=== PATIENT | female | born 1955 | race Caucasian/White ===

== ENCOUNTER → 2017-06-10 16:48 | Outpatient (CLI) | payer OTHER, SELFPAY ==
[2017-06-18 11:41] LABS: HPV APTIMA, High Risk Negative (Negative)
[2017-06-18 12:25] LABS: HPV Reflexed? NOT INDICATED
== END ==
PROVIDERS: Visit Provider Obstetrics & Gynecology
DX: R87.810 Cervical high risk human papillomavirus (HPV) DNA test positive (principal)
CPT/HCPCS: 88175; G0145

== ENCOUNTER → 2017-12-22 07:13 | Outpatient (CLI) | payer OTHER, SELFPAY ==
[2017-12-22 08:16] LABS: ALB/GLOB Ratio 1.3 RATIO (0.9-2.4); AST(SGOT) 12 U/L (15-37); Alanine Aminotransfer ALT/SGPT 27 U/L (13-56); Albumin, Serum 4.2 g/dL (3.2-5.0); Alkaline Phosphatase 107 U/L (45-117); Anion Gap 6 (5-15); BUN 13 mg/dL (7-18); BUN/Creat Ratio 13.5 RATIO (10-20); Calcium,Total 9.1 mg/dL (8.5-10.1); Chloride 109 mmol/L (98-107); Cholesterol 209 mg/dL (200); Creatinine, Serum 0.96 mg/dL (0.55-1.02); EST Glomerular Filtration Rate 62 mL/min (>60); Est Glom Filt Rate - Afr Amer 75 mL/min (>60); Globulin 3.2 g/dL (2.2-4.2); Glucose 99 mg/dL (74-106); High Density Lipoprotein 68 mg/dL; Potassium 4.3 mmol/L (3.5-5.1); Protein, Total 7.4 g/dL (6.4-8.2); Sodium Level 143 mmol/L (136-145); Triglycerides 85 mg/dL; Very Low Density Lipoprotein 17 mg/dL (5-40)
== END ==
PROVIDERS: Family Provider Family Medicine; PCP Family Medicine; Referring Provider Family Medicine; Visit Provider Family Medicine
DX: I10 Essential (primary) hypertension (principal); Z13.220 Encounter for screening for lipoid disorders
CPT/HCPCS: 36415; 80053; 80061

== ENCOUNTER → 2018-09-08 15:30 | Outpatient (CLI) | payer OTHER, SELFPAY ==
--- NOTE | 2018-09-08 15:34 | BI_ITS ---
MAMMOGRAPHY - BILATERAL SCREENING REASON FOR EXAM: Female, 63 years old. Routine annual screening examination. PERTINENT HISTORY: Non-contributory. TECHNIQUE: Digital bilateral breast milton (3D mammographic acquisition) in the CC and MLO projections. 2-D mediolateral oblique (MLO) and craniocaudad (CC) views of both breasts were obtained. CAD: Full Field Digital Mammography with Computer Added Detection was performed. COMPARISON: Comparison is made with prior outside examination dated May 21, 2016. FINDINGS: Breast Composition: There are scattered areas of fibroglandular density. There are no dominant masses or suspicious calcifications. No other significant abnormalities are identified. There has been no significant change since the prior study. BI/SCREEN MAMM (CAD) W/MILTON BILAT IMPRESSION: Stable bilateral screening mammogram. Yearly follow-up mammogram recommended. (A) ASSESSMENT CATEGORY: BIRADS Category 1: Negative. A letter regarding these results will be sent to the patient by the facility within 30 days. Approximately 10% of breast cancers are not detected by mammography. A normal mammogram should not delay biopsy of a clinically suspicious abnormality. [id number] Electronically Signed: Garo Mendes, at 15:51 EDT , Service support ,
[2018-09-15 15:19] LABS: HPV APTIMA, High Risk Positive (Negative)
== END ==
LOC: OPBI 15:32 → LABSPEC 15:34
PROVIDERS: Family Provider Family Medicine; PCP Family Medicine; Referring Provider Obstetrics & Gynecology; Visit Provider Obstetrics & Gynecology
DX: Z12.4 Encounter for screening for malignant neoplasm of cervix (principal); Z12.31 Encounter for screening mammogram for malignant neoplasm of breast
CPT/HCPCS: 77063; 77067; 88175; G0145

== ENCOUNTER → 2018-10-07 15:55 | Outpatient (CLI) | payer OTHER, SELFPAY ==
--- NOTE | 2018-10-07 | IMM_PTH ---
PATIENT: ASCENCION VYAS LOC: [facility] U#:[id number] AGE/SX: 69/F ROOM: RE10/07/[address]: Dr. Mor Piedra MD : 1955 BED: DIS: SPEC #: [id number] RECD: 10/11/18 12:18 STATUS: NEVAEH REGabrielle #: [id number] LAURA: 10/07/18 00:[address]: Mor Piedra DEPT: IMMUNOHISTOCHEMISTRY RECD BY: Ryne Bruno ENTERED: 10/11/18 12:20 SP TYPE: IMMUNO OTHR DR: Dr. Lino Kimble MD Tissues: A - Uterine cervix, NOS B - Endocervical Procedures: p16 (initial) KI-67 (add) PHYSICIAN & INSTITUTION [place] [id number] SPECIMEN INFORMATION: Tissue Source: A. Cervical biopsy, B. ECC Clinical Info: ASCUS, HPV positive Specimen Number: [id number] A and B CPT code: 82971 x2, 32369 x2 METHODOLOGY: Deparaffinized sections of prefer/formalin-fixed tissue or PAP/DQ stained slides are incubated with monoclonal/polyclonal antibodies/oligonucleotide probes. Localization is made via biotin free immunoperoxidase method. Appropriate controls are performed and reacted as expected. Results on target cell population are indicated in the following table: RESULTS: ANTIBODY / CLONE RESULT Block A P16 (E6H4) positive, focal, patchy Ki-67 (30-9) negative Block B P16 (E6H4) positive, focal, patchy Ki-67 (30-9) negative These tests were developed and their performance characteristics determined by [facility]. They may not have been cleared or approved by the U.S. Food and Drug Administration. The FDA has determined that such clearance or approval is not necessary. INTERPRETATION: A .Cervix, biopsy: Consistent with focal mild dysplasia/HPV change B. Endocervix, biopsy: Consistent with focal mild dysplasia/HPV change Case has been reviewed in consultation with Dr. Mendes who concurs with the above diagnosis. IDC:NESTOR AM:erasmo 10/12/18
--- NOTE | 2018-10-07 15:00 | CER_PTH ---
PATIENT: ASCENCION VYAS LOC: [facility] U#:[id number] AGE/SX: 69/F ROOM: RE10/07/[address]: Dr. Mor Piedra MD : 1955 BED: DIS: SPEC #: [id number] RECD: 10/07/18 15:43 STATUS: NEVAEH REGabrielle #: [id number] LAURA: 10/07/18 15:[address]: Mor Piedra DEPT: SURGICAL PATHOLOGY RECD BY: Yosef Beyer ENTERED: 10/10/18 13:32 SP TYPE: CERV OTHR DR: Dr. Lino Kimble MD Tissues: A - Uterine cervix, NOS B - Endocervical Procedures: Surgery Specimen Level IV HEADER OPERATION: Colposcopy PRE-OP DIAGNOSIS: ASCUS - HPV positive TISSUE SUBMITTED: A. Cervical biopsy, 4 quadrant, B. ECC MICROSCOPIC DIAGNOSIS A. Cervix, 4-quadrant biopsy: Mild squamous dysplasia, SERGEI 1 (LSIL). B. Endocervix, curettings: Strips of benign superficial endocervix. Strips of benign detached squamous mucosa with focal HPV change. HAN:angela 10/11/18 COMMENT Immunohistochemistry ([id number]) supports the above diagnosis. Case has been reviewed in consultation with Dr. Mendes who concurs with the above diagnosis. IDC:NESTOR MICROSCOPIC DESCRIPTION Slides are reviewed. GROSS DESCRIPTION A. Received is one container labeled with the patient name and designated cervix 4 quadrant. The specimen consists of multiple pieces of connell soft tissue that in aggregate measure 0.6 x 0.6 x 0.2 cm. The specimen is totally submitted in one cassette. B. Received is one container labeled with the patient name and designated ECC. The specimen consists of multiple fragments of hemorrhagic soft tissue that in aggregate measure 0.6 x 0.5 x 0.1 cm. The specimen is totally submitted in one cassette. /NESTOR:angela 10/10/18 TC: 5 CPT: 45899 x2
== END ==
PROVIDERS: Family Provider Family Medicine; PCP Family Medicine; Referring Provider Obstetrics & Gynecology; Visit Provider Obstetrics & Gynecology
DX: R87.810 Cervical high risk human papillomavirus (HPV) DNA test positive (principal)
CPT/HCPCS: 88305; 88341; 88342

== ENCOUNTER 2024-01-17 17:26 | Emergency (ER) | payer OTHER, MEDICARE, SELFPAY ==
[2024-01-17 17:27] VITALS: BP 162/88; PULSE 68; RESP 16; TEMP 37.1; O2SAT 99; BMI 24.9
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
--- NOTE | 2024-01-17 20:14 | ED.RN ---
Patient transported to CT
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
--- NOTE | 2024-01-17 20:20 | RAD_ITS ---
EXAM: XR CHEST, 2 VIEWS CLINICAL INDICATION: Pain TECHNIQUE: Frontal and lateral views of the chest. COMPARISON: No relevant prior studies available. FINDINGS: LUNGS AND PLEURAL SPACES: Hyperinflated lungs with mild interstitial prominence perhaps secondary to COPD. No focal pneumonia. No pneumothorax. No effusion. HEART: No significant abnormality. Cardiac silhouette not enlarged. MEDIASTINUM: Central airways and mediastinal contour are unremarkable. BONES/JOINTS: No significant abnormality. No acute fracture. SOFT TISSUES: No significant abnormality. RAD/Chest PA and Lateral IMPRESSION: Hyperinflated lungs with mild interstitial prominence perhaps secondary to COPD. No focal pneumonia. Electronically Signed: Zohaib Ellis DO at 21:13 EST ,
--- NOTE | 2024-01-17 20:27 | ED.RN ---
Patient returned to room from CT
--- NOTE | 2024-01-17 20:40 | ED.RN ---
Patient ambulated to bathroom
--- NOTE | 2024-01-17 21:10 | ED.RN ---
Patient given ice water and amparo doones per request
[2024-01-17 21:27] VITALS: RESP 16
[2024-01-17 21:58] VITALS: BP 162/88; PULSE 68; RESP 16; TEMP 37.1; O2SAT 99
== END 2024-01-17 21:58 | disposition home or self-care (01) ==
PROVIDERS: Emergency Provider Emergency Medicine; PCP Family Medicine; Visit Provider Emergency Medicine
DX: S16.1XXA Strain of muscle, fascia and tendon at neck level, initial encounter (principal); S20.20XA Contusion of thorax, unspecified, initial encounter; V49.40XA Driver injured in collision with unspecified motor vehicles in traffic accident, initial encounter
CPT/HCPCS: 71046; 72125; 99282

== ENCOUNTER → 2024-01-19 | Outpatient (CLI) | payer OTHER, MEDICARE, SELFPAY ==
[2024-01-19 12:39] LABS: Hematocrit 44.4 % (37-47); Hemoglobin 13.7 g/dL (12.0-15.0); Mean Corp Hgb Conc 30.9 g/dL (32-36); Mean Corpuscular Hgb 29.5 pg (27.0-32.0); Mean Corpuscular Volume 95.5 fL (81-99); Mean Platelet Vol. 12.5 fl (6.2-12.0); Platelet Count 205 K/mm3 (150-450); RBC Distribution Width CV 13.8 % (11.6-14.6); RBC Distribution Width SD 48.7 fl (35.1-43.9); Red Blood Count 4.65 M/mm3 (4.2-5.4); White Blood Count 7.8 K/mm3 (4.4-11.0)
[2024-01-19 12:46] LABS: Anion Gap 8 (5-15); BUN 16 mg/dL (7-18); BUN/Creat Ratio 15.8 RATIO (10-20); Calcium,Total 10.1 mg/dL (8.5-10.1); Chloride 106 mmol/L (98-107); Creatinine, Serum 1.01 mg/dL (0.55-1.02); EST Glomerular Filtration Rate 58 mL/min (>60); Est Glom Filt Rate - Afr Amer 70 mL/min (>60); Glucose 96 mg/dL (74-106); Potassium 4.3 mmol/L (3.5-5.1); Sodium Level 135 mmol/L (136-145)
== END | disposition home or self-care (01) ==
LOC: LAB.FUTURE 09:21 → MTLAB 09:35
PROVIDERS: PCP Family Medicine; Referring Provider Urology; Visit Provider Urology
DX: N39.3 Stress incontinence (female) (male) (principal); N39.42 Incontinence without sensory awareness
CPT/HCPCS: 36415; 80048; 85027

== ENCOUNTER 2024-01-27 06:51 | Day surgery (SDC) | payer MEDICARE, OTHER, SELFPAY ==
[2024-01-27] VITALS (7 sets, daily range): BP systolic 109–133; BP diastolic 56–76; PULSE 58–65; RESP 14–18; TEMP 36.6–36.7; O2SAT 98–100; BMI 23.4
--- NOTE | 2024-01-27 07:23 | PRE.ANES_ITS ---
ASA Classification* ASA Classification ASA Classification: 2 Assessment & Plan Anesthesia* Anesthesia Assessment Anesthesia Assessment: Discussed sedation and/or anesthesia options, risks, benefits, and alternatives with patient/parents/legal guardian/POA. Questions invited. The patient/parents/legal guardian/POA seems to understand and agrees to proceed with anesthesia plan. Reviewed the physical assessment, medical history, allergy history and patient home medications list prior to surgery/procedure/anesthetic and documented any changes. Performed airway and anesthesia risk assessments. Anesthesia Type Anesthesia Type: General Anesthesia Focused Assessment* Airway Assessment Mouth opens: >3 cm Mallampati Score: II Focused Labs Anesthesia Preop lab: CBC WBC 7.8 K/mm3 (4.4-11.0) 01/19/24 09:39 RBC 4.65 M/mm3 (4.2-5.4) 01/19/24 09:39 Hgb 13.7 g/dL (12.0-15.0) 01/19/24 09:39 Hct 44.4 % (37-47) 01/19/24 09:39 Plt Count 205 K/mm3 (150-450) 01/19/24 09:39 CHEMISTRY Potassium 4.3 mmol/L (3.5-5.1) 01/19/24 09:39 Sodium 135 mmol/L (136-145) L 01/19/24 09:39 BUN 16 mg/dL (7-18) 01/19/24 09:39 Creatinine 1.01 mg/dL (0.55-1.02) 01/19/24 09:39 Glucose 96 mg/dL (74-106) 01/19/24 09:39 TSH 2.00 uIU/mL (0.358-3.74) 12/01/17 08:00 COAG PT 13.0 SECONDS (11.7-14.9) 10/01/14 17:04 Pre-Assessment Diagnosis/Proposed Procedure Planned Operative Procedure(s): Cysto, Injection Bulkamid Anesthesia History 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 When Was Last Pacemaker Check QUESTION #4 FULL TEXT: You/Your Family Experience fever (hyperthermia) with Anesthesia Last Oral Intake Last Oral intake: Last Oral Intake NPO since Meds taken in AM with sips of water? Meds patient instructed to take am of surgery PONV PONV - telephone diaphragm assembler: PONV - telephone diaphragm assembler Female Yes 01/17/24 13:52 HX of Motion Sickness Yes 01/17/24 13:52 HX of N/V After Surgery No 01/17/24 13:52 Non-Smoker Yes 01/17/24 13:52 Duration of Surgery greater No 01/17/24 13:52 than 60 minutes Number of Risk Factors 3 01/17/24 13:52 PONV Score Moderate Risk 01/17/24 13:52 Height & Weight Height & Weight: Anesthesia: Height & Weight Height 5 ft 4 in 01/17/24 17:27 Respiratory Assessment Respiratory Assessment - telephone diaphragm assembler: Respiratory Tract Infection Hx - telephone diaphragm assembler Hx Respiratory Tract Infection No 01/17/24 13:52 STOP Sleep Apnea STOP Sleep Apnea - telephone diaphragm assembler: STOP Sleep Apnea - telephone diaphragm assembler Hx Hypertension No 01/17/24 13:52 Hx Sleep Apnea No 01/17/24 13:52 CPAP No 01/17/24 13:52 BIPAP No 01/17/24 13:52 Do you snore loudly (louder No 01/17/24 13:52 than talking or can be heard Do you often feel tired/ No 01/17/24 13:52 fatigued/ sleepy during daytime? Has anyone observed you stop No 01/17/24 13:52 breathing during sleep? STOP Results Negative 01/17/24 13:52 QUESTION #5 FULL TEXT : Do you snore loudly (louder than talking or can be heard through closed doors)? 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 Specify any problems Hx of Preganancy in last 3 No 01/17/24 13:52 Months Nurse Filling Out Transfusion VCHRISTIN 01/17/24 13:52 & Questions: Date: 01/17/24 01/17/24 13:52 Time: 13:53 01/17/24 13:52 Patient unable to answer at this time (ie. confused, unrespo /Reproduction History /Reproductive History - telephone diaphragm assembler: /Reproductive Hx- telephone diaphragm assembler Hx Now No 01/17/24 13:52 Gestational Age (in weeks): EDC: Hx Hx Para Hx Section SAB No 01/17/24 13:52 Active Medications Active Medications: Current Medications Generic Name Dose Route Start Last Admin Trade Name Freq PRN Reason Stop Dose Admin Cefazolin Sodium 2 gm/ N/A 20 mls @ 400 mls/hr 01/27/24 08:35 IV 01/27/24 08:37 PREOP ONE Sodium Chloride 1,000 mls @ 15 mls/hr 01/27/24 07:05 IV 02/01/24 20:24 .Q48H [facility] Protocol PFSH Medical History Wears hearing aid Post-menopausal Depression Anxiety History of steroid therapy Thyroid disease Non-smoker History of rheumatic fever History of irregular heartbeat Breast asymmetry Ptosis of both breasts Hearing problem Anxiety and depression Home Medications ?Medication ?Instructions ?Recorded ?Last Taken ?Type lamotrigine 100 mg tablet 100 mg PO DAILY 10/02/14 01/26/24 History levothyroxine 50 mcg tablet 50 mcg PO DAILY 10/02/14 01/27/24 History lithium carbonate 300 mg 300 mg PO BID 10/02/14 01/27/24 History tablet,extended release trazodone 50 mg tablet 150 mg PO QHS 09/23/20 01/26/24 History albuterol sulfate 90 mcg/actuation 2 puff inhalation Q4H PRN PRN 01/17/24 Unknown History aerosol inhaler wheezing clonazepam 1 mg tablet 1 mg PO DAILY 01/17/24 01/26/24 History cyclobenzaprine 10 mg tablet 10 mg PO QHS PRN PRN Muscle Spasm 01/17/24 01/26/24 Rx #7 TABLETS meloxicam 15 mg tablet 15 mg PO DAILY #7 tabs 01/17/24 01/26/24 Rx Allergy/AdvReac Type Severity Reaction Status Date / Time No Known Allergies Allergy Verified 01/27/24 07:13 Family History Father Cancer Mother Kidney disease Surgical History Hx of bilateral cataract extraction History of loop electrical excision procedure (LEEP) History of dilation and curettage Social History Smoking Status: Never smoker alcohol intake: never substance use type: does not use additional social history: Does Not Take Aspirin Does Take Ibuprofen As Needed Review of Systems (Anesthesia) ROS Narrative System reviewed and no additional complaints, except as documented.
[2024-01-27] MEDS: 0.9% Normal Saline (1000mL) 1,000 ML 15 ML IV (07:31)
--- NOTE | 2024-01-27 08:12 | HP.PCM_ITS ---
[facility] - General General Date of Service: 01/27/24 Chief Complaint: Urinary incontinence [facility] Narrative ASCENCION VYAS, is a 68 F who presents today for a cystoscopy with Bulkamid injection for treatment of her intrinsic sphincter deficiency and stress urinary incontinence. Informed consent has been obtained and she has a negative urine culture. She has no other complaints this morning. [facility] Medical History (Updated 01/27/24 @ 08:[address] Jessica Horne MD) Overflow stress urinary incontinence in female Intrinsic sphincter deficiency Wears hearing aid Post-menopausal Depression Anxiety History of steroid therapy Thyroid disease Non-smoker History of rheumatic fever History of irregular heartbeat Breast asymmetry Ptosis of both breasts Hearing problem Anxiety and depression Home Medications ?Medication ?Instructions ?Recorded ?Last Taken ?Type lamotrigine 100 mg tablet 100 mg PO DAILY 10/02/14 01/26/24 History levothyroxine 50 mcg tablet 50 mcg PO DAILY 10/02/14 01/27/24 History lithium carbonate 300 mg 300 mg PO BID 10/02/14 01/27/24 History tablet,extended release trazodone 50 mg tablet 150 mg PO QHS 09/23/20 01/26/24 History albuterol sulfate 90 mcg/actuation 2 puff inhalation Q4H PRN PRN 01/17/24 Unknown History aerosol inhaler wheezing clonazepam 1 mg tablet 1 mg PO DAILY 01/17/24 01/26/24 History cyclobenzaprine 10 mg tablet 10 mg PO QHS PRN PRN Muscle Spasm 01/17/24 01/26/24 Rx #7 TABLETS meloxicam 15 mg tablet 15 mg PO DAILY #7 tabs 01/17/24 01/26/24 Rx Allergy/AdvReac Type Severity Reaction Status Date / Time No Known Allergies Allergy Verified 01/27/24 07:13 Family History Father Cancer Mother Kidney disease Surgical History Hx of bilateral cataract extraction History of loop electrical excision procedure (LEEP) History of dilation and curettage Social History Smoking Status: Never smoker alcohol intake: never substance use type: does not use additional social history: Does Not Take Aspirin Does Take Ibuprofen As Needed ROS Constitutional Constitutional: Reports systems reviewed and no addt'l complaints, except as documented; Denies chills or fever(s) Eyes Eyes: Reports systems reviewed and no addt'l complaints, except as documented ENT HEENT: Reports systems reviewed and no addt'l complaints, except as documented and abnormal hearing Cardiovascular Cardiovascular: Reports systems reviewed and no addt'l complaints, except as documented; Denies abdominal pain, chest pain, nausea or vomiting Respiratory/Chest Respiratory/Chest: Reports systems reviewed and no addt'l complaints, except as documented; Denies cough or dyspnea Gastrointestinal Gastrointestinal: Reports systems reviewed and no addt'l complaints, except as documented; Denies nausea or vomiting Genitourinary Genitourinary: Reports systems reviewed and no addt'l complaints, except as documented and urinary incontinence; Denies abdominal discomfort, burning urination, difficulty urinating, flank pain or hematuria Musculoskeletal Musculoskeletal: Reports systems reviewed and no addt'l complaints, except as documented; Denies back pain Integumentary Integumentary: Reports systems reviewed and no addt'l complaints, except as documented Neurologic Neurologic: Reports systems reviewed and no addt'l complaints, except as documented Psychiatric Psychiatric: Reports systems reviewed and no addt'l complaints, except as documented and depression Endocrine Endocrinology: Reports systems reviewed and no addt'l complaints, except as documented Hematologic/Lymphatic Hematologic/Lymphatic: Reports systems reviewed and no addt'l complaints, except as documented Allergic/Immunologic Allergic/Immunologic: Reports systems reviewed and no addt'l complaints, except as documented Vital Signs Vital Signs Vital Signs: 01/27/24 07:15 01/27/24 07:15 Temperature 97.8 F Temperature Source Temporal Pulse Rate 65 Respiratory Rate 16 Respiratory Pattern Normal Blood Pressure 129/76 H Blood Pressure Mean 93 Blood Pressure Source Monitor Blood Pressure Position Sitting Blood Pressure Location Right Arm Pulse Ox 100 Oxygen Delivery Method Room Air Weight Weight: 62 kg Body Mass Index (BMI) 23.4 Physical Exam Const alert, oriented x3 and no apparent distress General Appearance: cooperative, comfortable and well kempt HEENT normocephalic, head/scalp atraumatic, external nose normal and moist oral mucous membranes; Negative for hearing grossly normal bilaterally Eyes General Eye: normal appearance of both eyes Neck supple General: trachea midline Lymph Lymphatic: no lymphedema noted Chest inspection of chest normal Chest: symmetrical chest wall rise Resp normal respiratory effort, normal air movement and no retractions Cardio regular rate GI soft to palpation, non-tender and non-distended no CVA tenderness Back/Spine no CVA tenderness Extremity normal to inspection Skin no rashes or lesions noted, no jaundice, no petechiae and no mottling Neuro oriented x3, CN's II-XII intact bilaterally and moves all extremities Psych mental status grossly normal, thought process normal, cooperative and affect normal Assessment & Plan Assessment/Plan (1) Intrinsic sphincter deficiency: (2) Overflow stress urinary incontinence in female: PLAN: Plan Proceed with cystoscopy and Bulkamid injection as scheduled
--- NOTE | 2024-01-27 08:22 | OP.PCM_ITS ---
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 Type of Anesthesia: MAC RN Documented Start/Stop Times: Operation Date: 01/27/24 08:35 Case Time Into Pre-Op 01/27/24 07:02 Out of Pre-Op 01/27/24 08:24 Anesthesia Start 01/27/24 08:25 Into Room 01/27/24 08:25 Procedure Start 01/27/24 08:46 Procedure End 01/27/24 08:49 Anesthesia End 01/27/24 08:57 Out of Room 01/27/24 08:57 Into Recovery 01/27/24 09:00 Procedure Start Time: 08:46 Procedure Stop Time: 08:49 Select all DRAINS/GRAFTS/IMPLANTS that apply: Graft Graft details: Bulkamid gel Estimated Blood Loss: <5cc Specimen collected: No Description of surgery: The patient is a 68-year-old female with the finding of intrinsic sphincter deficiency and stress urinary incontinence who presents for Bulkamid injection. Informed consent was obtained. She was taken to the operating room placed on the operating room table. Anesthesia monitored the head, neck, airway, IV access and vital signs throughout the case. Once anesthesia was appropriate ministered, she was placed into dorsolithotomy position and was prepped and draped in usual sterile fashion. The bladder was emptied with a red rubber catheter. Using the Bulkamid cystoscope, the sheath was positioned with the needle entering at the 7 o'clock position. The the cystoscope was pushed to the bladder neck where the needle was advanced to the 2 cm ousmane. The entire apparatus was brought back to the bladder neck. The needle was then inserted into the submucosa of the urethra and half of a syringe was injected creating a pillow. This process was then repeated at the 5:00, 1:00 and 11:00 positions. At the conclusion of the the injections, the urethra appeared to be well coapted. The cystoscope was removed. The patient was awakened and taken to the recovery room in good condition. There were no complications during the procedure. Surgical Findings: 4 pillows with good coaptation at the conclusion of the procedure injected at the 7:00, 5:00, 1:00, and 11:00 positions Complications Complications: No Admit VTE Documentation VTE Present on Admission: Yes VTE Mechan Device Prophylaxis: SCD's VTE Pharm Prophylaxis ordered?: No Reason prophylaxis not ordered: Treatment Not Indicated
--- NOTE | 2024-01-27 08:26 | DCINST_ITS ---
Discharge Instructions Diet Discharge Diet: No restrictions Activity Discharge Activity: Return to Normal Activity Lifting Restrictions: No heavy lifting or strenuous activity for 2 days Dressing / Incision Call your doctor if you observe: Fever of 101 or Higher, Inability to urinate and Inability to have a bowel movement Suture Line Care: Avoid Pulling/Pushing Follow Up Care Please Follow Up With: Jessica Horne MD When: The office will call for follow-up arrangements Test Results: Test results from this visit will be discussed in further detail at your follow- up appointment, if applicable. Discharge Plan Admission Attending Provider: Jessica Horne Primary Care Provider: Negro Mcgarry Instructions Print Language: [place] Discharge Orders/Prescriptions Prescriptions: New cephalexin 500 mg capsule 500 mg PO Q12 3 Days Qty: 6 0RF Continued lithium carbonate 300 MG tablet extended release 300 mg PO BID levothyroxine 50 MCG tablet 50 mcg PO DAILY lamotrigine 100 MG tablet 100 mg PO DAILY trazodone 50 mg tablet 150 mg PO QHS Patient Comments: TAKES AT HS meloxicam 15 mg tablet 15 mg PO DAILY Qty: 7 0RF cyclobenzaprine 10 mg tablet 10 mg PO QHS PRN PRN (Reason: Muscle Spasm) Qty: 7 0RF clonazepam 1 mg tablet 1 mg PO DAILY albuterol sulfate 90 mcg/actuation HFA aerosol inhaler 2 puff INHALATION Q4H PRN PRN (Reason: wheezing) Referrals / Follow Up: Lino Kimble MD [Non-Staff] - Disposition Disposition (needs filled in before D/C Order can be placed): Home, Self Care
[2024-01-27] MEDS: Cefazolin 2 GM in Syringe IV (08:44)
--- NOTE | 2024-01-27 09:02 | PCM.POST.ANE ---
Anesthesia: Postop Eval I Current Vital Signs Temperature: 98.1 F Pulse Rate: 60 Blood Pressure: 126/56 Respiratory Rate: 16 Pulse Ox: 99 Oxygen Delivery Method: Room Air Assessment Airway patent: Yes Spontaneous unlabored respirations: Yes Mental status: Awake and Calm nausea: No Vomiting: No Anesthesia Complication: No Fluid Hydration Crystalloid volume administer (ml): 200 Total IV fluid infused: 200 Progress Note Anesthesia document: Postop Eval 1 completed: Yes
--- NOTE | 2024-01-27 09:13 | POSTOPAN2_ITS ---
Anesthesia Postop Eval I Sum Postop Eval Completion status Anesthesia document: Postop Eval 1 completed: Yes Anesthesia Postop Eval I Summary Anesthesia Postop Eval I Summary: Anesthesia Postop Eval I: Assessment Summary Airway patent Yes 01/27/24 09:03 PREFORM MACHINE OPERATOR.[email or web address] Spontaneous unlabored Yes 01/27/24 09:03 PREFORM MACHINE OPERATOR.GDOTT respirations Mental status Awake,Calm 01/27/24 09:03 PREFORM MACHINE OPERATOR.GDOTT nausea No 01/27/24 09:03 PREFORM MACHINE OPERATOR.GDOTT Vomiting No 01/27/24 09:03 PREFORM MACHINE OPERATOR.GDOTT Anesthesia Postop Eval I: Fluid Summary Crystalloid volume administer 200 01/27/24 09:03 PREFORM MACHINE OPERATOR.GDOTT (ml) Colloids volume administered ( ml) Blood Product volume administered (ml) Total IV fluid infused 200 01/27/24 09:03 PREFORM MACHINE OPERATOR.GDOTT Anesthesia Postop Eval I: Summary Notes Anesthesia Complication No 01/27/24 09:03 PREFORM MACHINE OPERATOR.GDOTT Anesthesia Complication Comment: Post-operative progress note Anesthesia: Postop Eval II Evaluation Mental status: Awake Pain Level: 0 nausea: No Vomiting: No
--- NOTE | 2024-01-27 09:13 | PCM.POSTANE2 ---
Anesthesia Postop Eval I Sum Postop Eval Completion status Anesthesia document: Postop Eval 1 completed: Yes Anesthesia Postop Eval I Summary Anesthesia Postop Eval I Summary: Anesthesia Postop Eval I: Assessment Summary Airway patent Yes 01/27/24 09:03 CASE MANAGEMENT ASSOCIATE.GDOTT Spontaneous unlabored Yes 01/27/24 09:03 CASE MANAGEMENT ASSOCIATE.GDOTT respirations Mental status Awake,Calm 01/27/24 09:03 CASE MANAGEMENT ASSOCIATE.GDOTT nausea No 01/27/24 09:03 CASE MANAGEMENT ASSOCIATE.GDOTT Vomiting No 01/27/24 09:03 CASE MANAGEMENT ASSOCIATE.GDOTT Anesthesia Postop Eval I: Fluid Summary Crystalloid volume administer 200 01/27/24 09:03 CASE MANAGEMENT ASSOCIATE.GDOTT (ml) Colloids volume administered ( ml) Blood Product volume administered (ml) Total IV fluid infused 200 01/27/24 09:03 CASE MANAGEMENT ASSOCIATE.GDOTT Anesthesia Postop Eval I: Summary Notes Anesthesia Complication No 01/27/24 09:03 CASE MANAGEMENT ASSOCIATE.GDOTT Anesthesia Complication Comment: Post-operative progress note Anesthesia: Postop Eval II Evaluation Mental status: Awake Pain Level: 0 nausea: No Vomiting: No
== END 2024-01-27 11:53 | disposition home or self-care (01) ==
LOC: SDC 06:54 → AC 06:55
PROVIDERS: PCP Family Medicine; Referring Provider Urology; Visit Provider Urology
PROC: 3E0K8GC Introduction of Other Therapeutic Substance into Genitourinary Tract, Via Natural or Artificial Opening Endoscopic (ICD-10-PCS; CPT 52287; principal; 2024-01-27 08:25)
DX: N39.3 Stress incontinence (female) (male) (principal); N36.42 Intrinsic sphincter deficiency (ISD); E07.9 Disorder of thyroid, unspecified; Z79.51 Long term (current) use of inhaled steroids; Z79.899 Other long term (current) drug therapy
CPT/HCPCS: 51715; 00910; J2405